=== PATIENT | male | born 1955 | race Hispanic/Latino ===

== ENCOUNTER 2016-07-16 15:06 | Emergency (ER) | payer SELFPAY ==
[2016-07-16 15:44] VITALS: BMI 30.2
[2016-07-16 16:04] VITALS: BP 161/81; PULSE 75; RESP 17; TEMP 98; O2SAT 99
[2016-07-16 16:26] LABS: ADD MANUAL DIFF? NO
[2016-07-16 16:41] LABS: BASO % 0.4 % (0.0-3.0); EOS % 4.8 % (1.5-5.0); GRAN # 6.89 (1.4-6.5); GRAN % 62.6 % (50.0-68.0); HEMATOCRIT 41.2 % (42.0-52.0); LYMPH % 24.8 % (22.0-35.0); MEAN CELL VOLUME 88.6 fL (80.0-105.0); MEAN CORPUSCULAR HEMOGLOBIN 30.1 pg (25.0-35.0); MEAN PLATELET VOLUME 9.4 fl (7.0-11.0); MONO % 7.4 % (1.0-6.0); PLATELET COUNT 217 10^3/uL (120.0-450.0); RED CELL DISTRIBUTION WIDTH 13.8 % (11.5-14.5)
[2016-07-16 16:42] LABS: BASO # 0.04 K/mm3 (0.0-2.0); EOS # 0.5 (0.0-0.7); LYMPH # 2.7 (1.2-3.4); MONO # 0.8 (0.1-0.6)
[2016-07-16 16:48] LABS: ALB/GLOB RATIO 1.1 (1.1-1.8); ALKALINE PHOSPHATASE 83 U/L (38-133); ALT/SGPT 29 U/L (7-56); AST/SGOT 28 U/L (15-59); BILIRUBIN,TOTAL 0.8 mg/dL (0.2-1.3); BLOOD UREA NITROGEN 15 mg/dL (7-21); CALCIUM 8.9 mg/dL (8.4-10.5); CARBON DIOXIDE 24 mmol/L (21-33); CHLORIDE 106 mmol/L (98-107); GFR AFRICAN-AMERICAN > 60; GLUCOSE,RANDOM 102 mg/dL (70-110); MAGNESIUM 2.1 mg/dL (1.7-2.2); SODIUM 139 mmol/L (132-148); TOTAL PROTEIN 7.7 g/dL (5.8-8.3)
[2016-07-16 16:59] LABS: TROPONIN I < 0.01 ng/mL
--- NOTE | 2016-07-16 17:05 | RAD ---
HISTORY: chest pain COMPARISON: No prior. FINDINGS: LUNGS: No active pulmonary disease. PLEURA: No significant pleural effusion identified, no pneumothorax apparent. CARDIOVASCULAR: Mild cardiomegaly is noted. OSSEOUS STRUCTURES: No significant abnormalities. VISUALIZED UPPER ABDOMEN: Normal. OTHER FINDINGS: None. IMPRESSION: No evidence of infiltrate or consolidation in the lungs. Mild cardiomegaly.
--- NOTE | 2016-07-16 17:08 | ED PDOC ---
Arrival/HPI - General Chief Complaint: Chest Pain Time Seen by Provider: 07/16/16 15:23 Historian: Patient - History of Present Illness Narrative History of Present Illness (Text): 07/16/16 15:25 A 60 year old male, whose past medical history includes multiple stents (2014), presents to the emergency department complaining of intermittent chest pain for the past 3 days. Pain is localized to the right side and does not radiate anywhere. He denies any chest pain, shortness of breath, fever, cough or other complaints at this time. PMD: Dr. Melara Time/Duration: Other (3 days) Symptom Course: Intermittent Quality: Other Activities at Onset: Rest Context: Home Past Medical History - Provider Review Nursing Documentation Reviewed: Yes - Cardiac Hx Pacemaker: No - Pulmonary Hx Respiratory Disorders: Yes Hx Bronchitis: Yes - Neurological Hx Paralysis: No - HEENT Hx HEENT Disorder: Yes (WEARS RX GLASSSES,TONSILLECTOMY) - Hematological/Oncological Hx Blood Transfusions: No - Musculoskeletal/Rheumatological Hx Musculoskeletal Disorders: No - Psychiatric Hx Emotional Abuse: No Hx Physical Abuse: No Hx Substance Use: No - Surgical History Hx Coronary Stent: Yes (x 04 July 2014) - Anesthesia Hx Anesthesia Reactions: No Hx Malignant Hyperthermia: No - Suicidal Assessment Feels Threatened In Home Enviroment: No Family/Social History - Physician Review Nursing Documentation Reviewed: Yes Family/Social History: No Known Family HX Smoking Status: Never Smoked Hx Alcohol Use: No Hx Substance Use: No Hx Substance Use Treatment: No Allergies/Home Meds Allergies/Adverse Reactions: Allergies No Known Allergies Allergy (Verified 01/26/12 12:23) Home Medications: Home Meds Medication Instructions Recorded Confirmed Aspirin [Aspirin EC] 81 mg PO DAILY 07/06/14 07/16/16 Atorvastatin Calcium [Lipitor] 40 mg PO DIN 07/06/14 07/16/16 Review of Systems - Physician Review All systems were reviewed & negative as marked: Yes - Review of Systems Constitutional: absent: Fevers Respiratory: absent: SOB, Cough Cardiovascular: Chest Pain (not at this time) Physical Exam Vital Signs Reviewed: Yes Vital Signs Temp Pulse Resp BP Pulse Ox 07/16/16 16:03 98 F 75 17 161/81 H 99 Temperature: Afebrile Blood Pressure: Hypertensive Pulse: Regular Respiratory Rate: Normal Appearance: Positive for: Well-Appearing, Non-Toxic, Comfortable Pain Distress: None Mental Status: Positive for: Alert and Oriented X 3 - Systems Exam Head: Present: Atraumatic, Normocephalic Pupils: Present: PERRL Extroacular Muscles: Present: EOMI Conjunctiva: Present: Normal Mouth: Present: Moist Mucous Membranes Neck: Present: Normal Range of Motion Respiratory/Chest: Present: Clear to Auscultation, Good Air Exchange. No: Respiratory Distress, Accessory Muscle Use Cardiovascular: Present: Regular Rate and Rhythm, Normal S1, S2. No: Murmurs Abdomen: Present: Normal Bowel Sounds. No: Tenderness, Distention, Peritoneal Signs Back: Present: Normal Inspection Upper Extremity: Present: Normal Inspection. No: Cyanosis, Edema Lower Extremity: Present: Normal Inspection. No: Edema Neurological: Present: GCS=15, CN II-XII Intact, Speech Normal Skin: Present: Warm, Dry, Normal Color. No: Rashes Psychiatric: Present: Alert, Oriented x 3, Normal Insight, Normal Concentration Medical Decision Making ED Course and Treatment: 07/16/16 15:25 Impression: A 60 year old male with atypical chest pain. Differential Diagnosis include but are not limited to: ACS vs. musculoskeletal Plan: -- EKG -- Chest X-ray -- Labs -- Urinalysis -- Aspirin -- Reassess and disposition Progress Notes: EKG: Ordered, reviewed, and independently interpreted the EKG. Rate : 70 BPM Rhythm : NSR Interpretation : Left bundle branch block. Comparison : No change from previous EKG for comparison. 07/16/16 17:05 Chest X-ray: Creator : Km Gee COMPARISON: No prior. FINDINGS: LUNGS: No active pulmonary disease. PLEURA: No significant pleural effusion identified, no pneumothorax apparent. CARDIOVASCULAR: Mild cardiomegaly is noted. OSSEOUS STRUCTURES: No significant abnormalities. VISUALIZED UPPER ABDOMEN: Normal. OTHER FINDINGS: None. IMPRESSION: No evidence of infiltrate or consolidation in the lungs. Mild cardiomegaly. 07/16/16 17:[address] Melara, who is aware and agrees with the plan to discharge the patient home. On re-evaluation, the patient feels better and is in no acute distress. I have discussed the results and plan with the patient, who expresses understanding. Patient in agreement with plan to discharged home. Patient is stable for discharge. Patient was instructed to follow up with physician/clinic in 1-2 days or return if symptoms worsen or new concerning symptoms arise. 07/16/16 17:50 - Lab Interpretations Lab Results: 07/16/16 16:17 07/16/16 16:17 Lab Results 07/16/16 16:17: WBC 11.0 D, RBC 4.65, Hgb 14.0, Hct 41.2 L, MCV 88.6, MCH 30.1 , MCHC 34.0, RDW 13.8, Plt Count 217, MPV 9.4, Gran % 62.6, Lymph % (Auto) 24.8 , [place] % (Auto) 7.4 H, Eos % (Auto) 4.8, Baso % (Auto) 0.4, Gran # 6.89 H, Lymph # 2.7, [place] # 0.8 H, Eos # 0.5, Baso # 0.04, Sodium 139, Potassium 4.0, Chloride 106, Carbon Dioxide 24, Anion Gap 13, BUN 15, Creatinine 0.9, Est GFR ( Amer) > 60, Est GFR (Non-Af Amer) > 60, Random Glucose 102, Calcium 8.9 , Magnesium 2.1, Total Bilirubin 0.8, AST 28, ALT 29, Alkaline Phosphatase 83, Lactate Dehydrogenase 468, Total Creatine Kinase 123, Troponin I < 0.01, NT-Pro- B Natriuret Pep 75.0, Total Protein 7.7, Albumin 4.0, Globulin 3.6, Albumin/ Globulin Ratio 1.1 I have reviewed the lab results: Yes - RAD Interpretation Radiology Orders: 07/16/16 15:43 CHEST PORTABLE [RAD] Stat - Medication Orders Current Medication Orders: Discontinued Medications Aspirin (Aspirin) 325 mg PO STAT STA Stop: 07/16/16 15:44 Last Admin: 07/16/16 16:40 Dose: 325 MG Cyclobenzaprine HCl (Flexeril) 10 mg PO STAT STA Stop: 07/16/16 17:24 Oxycodone/Acetaminophen (Percocet 5/325 Mg Tab) 1 tab PO STAT STA Stop: 07/16/16 17:24 - Scribe Statement The provider has reviewed the documentation as recorded by the Jazminibe Ivette Dallas Provider Scribe Attestation: All medical record entries made by the Scribe were at my direction and personally dictated by me. I have reviewed the chart and agree that the record accurately reflects my personal performance of the history, physical exam, medical decision making, and the department course for this patient. I have also personally directed, reviewed, and agree with the discharge instructions and disposition. Disposition/Present on Arrival - Present on Arrival Any Indicators Present on Arrival: No History of DVT/PE: No History of Uncontrolled Diabetes: No Urinary Catheter: No History of Decub. Ulcer: No History Surgical Site Infection Following: None - Disposition Have Diagnosis and Disposition been Completed?: Yes Diagnosis: Non-cardiac chest pain Disposition: HOME/ ROUTINE Disposition Time: 17:10 Patient Plan: Discharge Condition: GOOD Discharge Instructions (ExitCare): Chest Pain (ED) Additional Instructions: Thank you for letting us take care of you today. Your provider was Dr. Peralta. You were treated for non-cardiac chest pain. The emergency medical care you received today was directed at your acute symptoms. If you were prescribed any medication, please fill it and take as directed. It may take several days for your symptoms to resolve. Return to the Emergency Department if your symptoms worsen, do not improve, or if you have any other problems. Please contact your doctor or call one of the physicians/clinics you have been referred to that are listed on the Patient Visit Information form that is included in your discharge packet. Bring any paperwork you were given at discharge with you along with any medications you are taking to your follow up visit. Our treatment cannot replace ongoing medical care by a primary care provider (PCP) outside of the emergency department. Thank you for allowing the [facility] team to be part of your care today. Follow up with Dr. Melara in the morning. Return to the emergency room if you have any questions. Prescriptions: Cyclobenzaprine [Cyclobenzaprine HCl] 10 mg PO Q8 PRN #20 tab PRN Reason: Muscle Spasm Ibuprofen [Motrin] 600 mg PO Q6 PRN #20 tab PRN Reason: Pain, Moderate (4-7) Referrals: Zaheer Melara DO [Primary Care Provider] - Follow up with primary
[2016-07-16] MEDS ORDERED: Oxycodone/Acetaminophen 5/325 mg Tab PO STA (17:23)
--- NOTE | 2016-07-16 20:54 | CARD ---
APPROVED REPORT EKG Measurement Heart [id number] <Conclusion> Sinus rhythm with premature supraventricular complexes Possible Left atrial enlargement Left bundle branch block Abnormal ECG
== END 2016-07-16 18:20 | disposition home or self-care (01) ==
LOC: ED 15:06
DX: R07.89 Other chest pain (principal)

== ENCOUNTER 2018-08-04 16:53 | Outpatient (CLI) | payer MEDICARE | END 2018-08-04 16:54 | disposition home or self-care (01) | LOC: RAD 16:54 | DX: M17.2 Bilateral post-traumatic osteoarthritis of knee (principal) ==

== ENCOUNTER 2018-08-21 06:27 | Outpatient (CLI) | payer MEDICARE | END 2018-08-21 06:28 | disposition home or self-care (01) | LOC: CARDIO 06:27 | DX: I25.10 Atherosclerotic heart disease of native coronary artery without angina pectoris (principal); E78.00 Pure hypercholesterolemia, unspecified; Z01.810 Encounter for preprocedural cardiovascular examination ==

== ENCOUNTER 2018-08-29 06:04 | Day surgery (SDC) | payer MEDICARE ==
[2018-08-28 10:58] VITALS: BMI 28.8
[2018-08-29 06:51] LABS: BASO # 0.03 K/mm3 (0.0-2.0); BASO % 0.3 % (0.0-3.0); EOS # 0.3 (0.0-0.7); EOS % 2.9 % (1.5-5.0); HEMOGLOBIN 14.5 g/dL (14.0-18.0); LYMPH # 3.6 (1.2-3.4); LYMPH % 37.3 % (22.0-35.0); MEAN CELL VOLUME 88.3 fl (80.0-105.0); MEAN CORPUSCULAR HEMOGLOBIN 30.4 pg (25.0-35.0); MEAN CORPUSCULAR HGB CONC 34.4 g/dl (31.0-37.0); MEAN PLATELET VOLUME 10.5 fl (7.0-11.0); MONO # 0.7 (0.1-0.6); MONO % 6.8 % (1.0-6.0); RBC 4.77 10^6/uL (3.5-6.1); RED CELL DISTRIBUTION WIDTH 13.7 % (11.5-14.5); WHITE BLOOD COUNT 9.6 10^3/uL (4.5-11.0)
[2018-08-29] MEDS ORDERED: Iodixanol 320 MG/ML 200 ML BOTTLE IV ONE (07:18)
[2018-08-29] MEDS ORDERED: Lidocaine PF 2% (5 ml) Inj (For Cardiac Arrhy) ONE (07:18)
[2018-08-29] MEDS ORDERED: Iohexol 350mgl/ml 50 ML ONE (07:18)
[2018-08-29] MEDS ORDERED: Nitroglycerin 50mg in D5W 50 MG/250 ML BOTTLE IV ONE (07:18)
[2018-08-29] MEDS ORDERED: Iodixanol 320 MG/ML 100 ML BOTTLE IV ONE (07:18)
[2018-08-29 07:36] LABS: BLOOD UREA NITROGEN 16 mg/dL (7-21); CALCIUM 8.9 mg/dL (8.4-10.5); HDL CHOLESTEROL 46 mg/dL (29-60)
[2018-08-29] MEDS ORDERED: Midazolam 2 MG/2 ML VIAL ONE ×3 (07:42→07:53)
[2018-08-29 07:47] LABS: LDL CHOLESTEROL 90 mg/dL (0-129)
[2018-08-29 07:55] LABS: GFR NON-AFRICAN AMERICAN > 60
[2018-08-29 08:11] LABS: INR 1.17; PARTIAL THROMBOPLASTIN TIME 30.6 Seconds (26.9-38.3); PROTHROMBIN TIME 13.2 SECONDS (9.4-12.5)
[2018-08-29] MEDS ORDERED: Sodium Chloride 0.9% 1,000 ML IV SCH (08:15)
[2018-08-29 09:02] VITALS: TEMP 97
--- NOTE | 2018-08-29 10:31 | CARDCATH ---
PROCEDURE DATE: 08/29/2018 HISTORY: The patient is a 63-year-old male with multiple cardiac risk factors and documented multivessel CAD who presents with exertional shortness of breath. His stress test was abnormal. Because of this, a cardiac catheterization was recommended. PROCEDURES: Left heart catheterization with coronary arteriography, left ventriculogram and supra-aortic valvular injection were performed. There were no complications. The right femoral artery was cannulated with 6-[place] sheath. There were no complications. I performed moderate sedation which included the presence of an independent trained observer that assisted in monitoring the patient's level of consciousness and physiologic status. After administration of Versed and fentanyl, my intra-service time was 30 minutes. The findings on catheterization revealed a left ventricle that contracted normally. The ejection fraction was low normal at approximately 50%. His coronary anatomy revealed a right-dominant circulation. The RCA revealed a 50% stenosis in the midportion with intimal irregularities without critical lesions. The left main artery was unremarkable. The LAD revealed patent stents in the proximal as well as in the distal portion. There is an eccentric long lesion of approximately 50% in mid LAD. The circumflex artery revealed a patent stent. Supra-aortic valvular injection revealed no aortic insufficiency. AngioSeal was used to close the femoral artery site. The patient tolerated the procedure well. In summary, the procedure reveals patent stent in the LAD and circumflex artery, with 50% stenosis in the RCA as well as in the mid LAD. LV function is low normal with an EF of 50%. Given these findings, the patient's dyspnea is likely due to his deconditioning. He has an adequate LV function. In addition, there are no cardiac contraindications to his planned orthopedic surgery. Zachariah Hampton MD
[2018-08-29 11:00] VITALS: RESP 16
[2018-08-29 13:40] VITALS: BP 121/73; PULSE 58; O2SAT 95
== END 2018-08-29 14:30 | disposition home or self-care (01) ==
LOC: CATH 06:04 → SDSVAS 06:04 → CATH 14:30
PROVIDERS: ATTEND Internal Medicine Cardiovascular Disease
DX: I25.10 Atherosclerotic heart disease of native coronary artery without angina pectoris (principal); R06.02 Shortness of breath; E78.00 Pure hypercholesterolemia, unspecified
CPT/HCPCS: 36415; 80048; 80061; 85025; 85610; 85730; 86850; 86900; 93458; 99152; C1760; C1769; C2629; J1644; J2250; J3010; J7030; J7040; Q9966

== ENCOUNTER 2018-09-18 09:55 | Outpatient (CLI) | payer MEDICARE | END 2018-09-18 09:56 | disposition home or self-care (01) | LOC: RAD 09:55 ==

== ENCOUNTER 2018-09-19 12:46 | Outpatient (CLI) | payer MEDICARE | END 2018-09-19 12:47 | disposition home or self-care (01) | LOC: CARDIO 12:46 ==